=== PATIENT | male | born 1945 | race American Indian/Alaskan Native ===

== ENCOUNTER 2019-01-14 15:52 | Inpatient (IN) | payer OTHER ==
--- NOTE | 2019-01-14 17:05 | Emergency Department Report ---
HPI - General Chief Complaint: Weakness Time Seen by Provider: 01/14/19 16:58 - HPI HPI: 73-year-old -Citizen Of [place] male presents to the emergency department via EMS from the [facility] retirement with complaint of some generalized weakness, fatigue and concern for an concern for symptomatically anemia. The patient had some blood work done at the retirement recently that showed a hemoglobin of 6.6. He has a past history of prostate cancer, hypertension, anemia, osteoarthritis and some more remote history of alcohol abuse. He has no t taken anything or symptoms and for his symptoms prior to arrival. He denies any fever, chest pain, shortness of breath, nausea, vomiting. ED Past Medical Hx - Past Medical History Previous Medical History?: Yes Hx Hypertension: Yes Hx of Cancer: Yes Additional medical history: hx sepsis, Failure to thrive, and ETOH abuse - Surgical History Past Surgical History?: No - Social History Smoking Status: Unknown if ever smoked Substance Use Type: None - Medications Home Medications: Home Medications Medication Instructions Recorded Confirmed Last Taken Type Folic Acid [Folvite] 1 mg PO QDAY 01/14/19 01/14/19 1 Day Ago History ~01/13/19 Megestrol [Megace] 400 mg PO QDAY 01/14/19 01/14/19 1 Day Ago History ~01/13/19 Mirtazapine [Remeron] 15 mg PO QHS 01/14/19 01/14/19 1 Day Ago History ~01/13/19 Pregabalin [Lyrica] 100 mg PO BID 01/14/19 01/14/19 1 Day Ago History ~01/13/19 Rivaroxaban [Xarelto] 15 mg PO QDAY 01/14/19 01/14/19 1 Day Ago History ~01/13/19 hydroCHLOROthiazide [Hctz] 12.5 mg PO QDAY 01/14/19 01/14/19 1 Day Ago History ~01/13/19 ED Review of Systems ROS: Stated complaint: LOW H/H Other details as noted in HPI Comment: All other systems reviewed and negative Constitutional: weakness. denies: chills, fever Eyes: denies: eye pain, vision change ENT: denies: ear pain, throat pain Respiratory: denies: cough, shortness of breath Cardiovascular: denies: chest pain, palpitations Gastrointestinal: denies: abdominal pain, vomiting Genitourinary: denies: dysuria, discharge Musculoskeletal: denies: back pain, arthralgia Skin: denies: rash, lesions Neurological: weakness. denies: headache, numbness Physical Exam - Physical Exam Vital Signs: Vital Signs 01/14/19 01/14/19 01/14/19 16:24 16:25 16:30 Temperature 99.5 F Pulse Rate 95 H 117 H 111 H Respiratory 15 13 Rate Blood Pressure 116/77 120/79 O2 Sat by Pulse 97 100 98 Oximetry Physical Exam: GENERAL: The patient is well-developed well-nourished. HEENT: Normocephalic. Atraumatic. Patient has moist mucous membranes. EYES: Extraocular motions are intact. Pupils are equal and reactive to light bilaterally. NECK: Supple. Trachea is midline. CHEST/LUNGS: Clear to auscultation. There is no respiratory distress noted. HEART/CARDIOVASCULAR: Regular. There is mild tachycardia. There is no obvious murmur. ABDOMEN: Abdomen is soft, nontender. Patient has normal bowel sounds. There is no abdominal distention. SKIN: Skin is warm and dry. Patient has some pressure ulcers to each hip/buttock. NEURO: The patient is awake, alert, and cooperative. The patient has normal speech. MUSCULOSKELETAL: There is no tenderness or deformity. There is no evidence of acute injury. ED Course Vital Signs 01/14/19 01/14/19 01/14/19 16:24 16:25 16:30 Temperature 99.5 F Pulse Rate 95 H 117 H 111 H Respiratory 15 13 Rate Blood Pressure 116/77 120/79 O2 Sat by Pulse 97 100 98 Oximetry ED Medical Decision Making - Lab Data Result diagrams: 01/14/19 17:40 01/14/19 17:40 - EKG Data -: EKG Interpreted by Al EKG shows normal: sinus rhythm (PVCs), axis, intervals, QRS complexes, ST-T waves Rate: tachycardia (103 bpm) - EKG Data When compared to previous EKG there are: previous EKG unavailable Interpretation: other (sinus tachycardia with PVCs) - Radiology Data Radiology results: report reviewed PROCEDURE: CT HEAD/BRAIN WO CON TECHNIQUE: Computerized tomography of the head was performed without contrast material. HISTORY: weakness COMPARISONS: None . FINDINGS: Brain: There is no evidence of intracranial hemorrhage. No parenchymal hemorrhage is seen. No mass lesions or mass effect is identified. No abnormal extra-axial fluid collections or masses are seen. There is some decreased density seen in the periventricular white matter without mass effect. This is fairly symmetric and does not exhibit any mass effect consistent with gliosis probably on the basis of microvascular disease or white matter changes of aging. Ventricles: The ventricles, sulcal pattern and fissures are prominent consistent with atrophy. Bone Windows: No evidence of fracture. Paranasal sinuses: Mild mucosal thickening seen posteriorly in the maxillary sinuses bilaterally. No air-fluid levels are seen. Mastoid air cells: Clear. IMPRESSION: There is mild to moderate atrophy and gliosis. No acute intracranial abnormalities are identified. Mild paranasal sinus disease as described. This document is electronically signed by Britany Jaime MD., January 14 2019 06 :51:34 PM ET Transcribed By: NOÉ Dictated By: BRITANY JAIME MD Electronically Authenticated By: BRITANY JAIME MD Signed Date/Time: 01/14/19 0524 - Medical Decision Making Patient was sent in from his retirement for some generalized weakness and concern for anemia with recent blood work showing a hemoglobin of 6.6. Today, and this emergency department, his hemoglobin was 7. However it still sounds consistent with symptomatic anemia. Patient will have 1 unit of packed red blood cells for transfusion. EKG did not show any signs of ST elevation IL or dysrhythmia. However his first troponin came back elevated without any renal insufficiency. For these reasons, the patient will be admitted to the hospital for further evaluation and treatment and was accepted for admission by the hospitalist service. - Differential Diagnosis symptomatic anemia, dysrhythmia, IL, electrolyte abnormalities Critical Care Time: No Critical care attestation.: If time is entered above; I have spent that time in minutes in the direct care of this critically ill patient, excluding procedure time. ED Disposition Clinical Impression: Symptomatic anemia, Elevated troponin, Generalized weakness Disposition: OP ADMIT IP TO THIS HOSP Is pt being admited?: Yes Condition: Fair Time of Disposition: 20:00
[2019-01-14 18:02] LABS: Hematocrit 22.4 % (35.5-45.6); Mean Corpuscular HGB Conc 32 % (32-34); Mean Corpuscular Volume 90 fl (84-94); Platelet Count 409 K/mm3 (140-440); Red Blood Count 2.48 M/mm3 (3.65-5.03)
[2019-01-14 18:07] LABS: Red Cell Distribution Width 21.5 % (13.2-15.2)
[2019-01-14 18:21] LABS: Alanine Aminotransferase 7 units/L (7-56); Albumin 2.6 g/dL (3.9-5); BUN/Creatinine Ratio 22; Blood Urea Nitrogen 13 mg/dL (9-20); Calcium 8.7 mg/dL (8.4-10.2); Hemolysis Index 3
[2019-01-14 18:32] LABS: Chol/HDL Ratio 3.84 %; HDL Cholesterol 26 mg/dL (40-59); LDL Cholesterol,Direct 68 mg/dL (50-130)
--- NOTE | 2019-01-14 18:53 | Cat Scan Report ---
PROCEDURE: CT HEAD/BRAIN WO CON TECHNIQUE: Computerized tomography of the head was performed without contrast material. HISTORY: weakness COMPARISONS: None . FINDINGS: Brain: There is no evidence of intracranial hemorrhage. No parenchymal hemorrhage is seen. No mass lesions or mass effect is identified. No abnormal extra-axial fluid collections or masses are seen. There is some decreased density seen in the periventricular white matter without mass effect. This i s fairly symmetric and does not exhibit any mass effect consistent with gliosis probably on the basis of microvascular disease or white matter changes of aging. Ventricles: The ventricles, sulcal pattern and fissures are prominent consistent with atrophy. Bone Windows: No evidence of fracture. Paranasal sinuses: Mild mucosal thickening seen posteriorly in the maxillary sinuses bilaterally. No air-fluid levels are seen. Mastoid air cells: Clear. IMPRESSION: There is mild to moderate atrophy and gliosis. No acute intracranial abnormalities are identified. Mild paranasal sinus disease as described. This document is electronically signed by Jagdish Jaime MD., January 14 2019 06:51:34 PM ET
[2019-01-14] MEDS ORDERED: NACL 0.9% 500 ML 500 ML IV ONE (19:12)
[2019-01-14 19:54] LABS: Basophils % (Manual) 0 % (0.0-1.8); Eosinophils % (Manual) 0 % (0.0-4.3); Total Cells Counted 100
[2019-01-14 19:55] LABS: Anisocytosis 1+; Giant Platelets Few; Hypochromasia 1+; Ovalocytes Few; Platelet Estimate Consistent w Auto; Poikilocytosis Few
[2019-01-14 19:56] LABS: Large Platelets Few
[2019-01-14] MEDS ORDERED: NACL 0.9% 500 ML 500 ML ONE (19:57)
[2019-01-14] MEDS ORDERED: TYLENOL PO PRN (22:36)
[2019-01-14] MEDS ORDERED: ZOFRAN IV PRN (22:36)
[2019-01-14] MEDS ORDERED: SODIUM CHLORIDE FLUSH SYRINGE 10 ML IV PRN (22:36)
--- NOTE | 2019-01-14 23:20 | History and Physical Report ---
History of Present Illness Date of examination: 01/14/19 Date of admission: 01/14/19 19:11 Chief complaint: Generalized weakness History of present illness: Pt is a 73-year-old male with PMHX of prostate cancer, hypertension, anemia, osteoarthritis and some more remote history of alcohol abuse who presents to the ER via EMS from a [facility] with complaint of some generalized weakness, fatigue and concern for an concern for symptomatically anemia. Pt has a reported hemoglobin of 6.6 at the [facility], he c/o fatigue, SOB, he denies any fever, chest pain, denies headache, denies nausea or vomiting. Pt's hemoglobin was 7.0 in the ER, blood transfusion was started, he was admitted for further evaluation and treatment. Past History Past Medical History: cancer, hypertension, other (anemia, arthritis) Social history: no significant social history, other (lives in a [facility]) Family history: no significant family history Medications and Allergies Allergies Allergy/AdvReac Type Severity Reaction Status Date / Time No Known Allergies Allergy Unverified 09/25/15 10:40 Home Medications Medication Instructions Recorded Confirmed Last Taken Type Folic Acid [Folvite] 1 mg PO QDAY 01/14/19 01/14/19 1 Day Ago History ~01/13/19 Megestrol [Megace] 400 mg PO QDAY 01/14/19 01/14/19 1 Day Ago History ~01/13/19 Mirtazapine [Remeron] 15 mg PO QHS 01/14/19 01/14/19 1 Day Ago History ~01/13/19 Pregabalin [Lyrica] 100 mg PO BID 01/14/19 01/14/19 1 Day Ago History ~01/13/19 Rivaroxaban [Xarelto] 15 mg PO QDAY 01/14/19 01/14/19 1 Day Ago History ~01/13/19 hydroCHLOROthiazide [Hctz] 12.5 mg PO QDAY 01/14/19 01/14/19 1 Day Ago History ~01/13/19 Active Meds: Active Medications Acetaminophen (Tylenol) 650 mg PO Q4H PRN PRN Reason: Pain MILD(1-3)/Fever >100.5/ALBA Ondansetron HCl (Zofran) 4 mg IV Q8H PRN PRN Reason: Nausea And Vomiting Sodium Chloride (Sodium Chloride Flush Syringe 10 Ml) 10 ml IV BID SKIP Sodium Chloride (Sodium Chloride Flush Syringe 10 Ml) 10 ml IV PRN PRN PRN Reason: LINE FLUSH Review of Systems Respiratory: shortness of breath Exam - Constitutional Vitals: Temp Pulse Resp BP Pulse Ox 99.0 F 105 H 20 114/72 97 01/14/19 20:01 01/14/19 23:01 01/14/19 21:34 01/14/19 20:30 01/14/19 20:30 General appearance: Present: no acute distress - EENT Eyes: Present: PERRL ENT: hearing intact - Neck Neck: Present: supple - Respiratory Respiratory effort: normal Respiratory: bilateral: CTA - Cardiovascular Rhythm: regular - Extremities Extremities: no ischemia Peripheral Pulses: within normal limits - Abdominal Male genitourinary: Present: deferred - Rectal Rectal Exam: deferred - Integumentary Integumentary: Present: clear - Musculoskeletal Musculoskeletal: strength equal bilaterally Results - Labs CBC & Chem 7: 01/14/19 23:54 01/14/19 23:54 Labs: Laboratory Last Values WBC 10.7 K/mm3 (4.5-11.0) 01/14/19 17:40 RBC 2.48 M/mm3 (3.65-5.03) L 01/14/19 17:40 Hgb 7.0 gm/dl (11.8-15.2) L 01/14/19 17:40 Hct 22.4 % (35.5-45.6) L 01/14/19 17:40 MCV 90 fl (84-94) 01/14/19 17:40 MCH 28 pg (28-32) 01/14/19 17:40 MCHC 32 % (32-34) 01/14/19 17:40 RDW 21.5 % (13.2-15.2) H 01/14/19 17:40 Plt Count 409 K/mm3 (140-440) 01/14/19 17:40 Add Manual Diff Complete 01/14/19 17:40 Total Counted 100 01/14/19 17:40 Seg Neuts % (Manual) 77.0 % (40.0-70.0) H 01/14/19 17:40 Band Neutrophils % 0 % 01/14/19 17:40 Lymphocytes % (Manual) 16.0 % (13.4-35.0) 01/14/19 17:40 Reactive Lymphs % (Man) 0 % 01/14/19 17:40 Monocytes % (Manual) 5.0 % (0.0-7.3) 01/14/19 17:40 Eosinophils % (Manual) 0 % (0.0-4.3) 01/14/19 17:40 Basophils % (Manual) 0 % (0.0-1.8) 01/14/19 17:40 Metamyelocytes % 2.0 % 01/14/19 17:40 Myelocytes % 0 % 01/14/19 17:40 Promyelocytes % 0 % 01/14/19 17:40 Blast Cells % 0 % 01/14/19 17:40 Nucleated RBC % Not Reportable 01/14/19 17:40 Seg Neutrophils # Man 8.2 K/mm3 (1.8-7.7) H 01/14/19 17:40 Band Neutrophils # 0.0 K/mm3 01/14/19 17:40 Lymphocytes # (Manual) 1.7 K/mm3 (1.2-5.4) 01/14/19 17:40 Abs React Lymphs (Man) 0.0 K/mm3 01/14/19 17:40 Monocytes # (Manual) 0.5 K/mm3 (0.0-0.8) 01/14/19 17:40 Eosinophils # (Manual) 0.0 K/mm3 (0.0-0.4) 01/14/19 17:40 Basophils # (Manual) 0.0 K/mm3 (0.0-0.1) 01/14/19 17:40 Metamyelocytes # 0.2 K/mm3 01/14/19 17:40 Myelocytes # 0.0 K/mm3 01/14/19 17:40 Promyelocytes # 0.0 K/mm3 01/14/19 17:40 Blast Cells # 0.0 K/mm3 01/14/19 17:40 WBC Morphology Not Reportable 01/14/19 17:40 Hypersegmented Neuts Not Reportable 01/14/19 17:40 Hyposegmented Neuts Not Reportable 01/14/19 17:40 Hypogranular Neuts Not Reportable 01/14/19 17:40 Smudge Cells Not Reportable 01/14/19 17:40 Toxic Granulation Not Reportable 01/14/19 17:40 Toxic Vacuolation Not Reportable 01/14/19 17:40 Dohle Bodies Not Reportable 01/14/19 17:40 Pelger-Huet Anomaly Not Reportable 01/14/19 17:40 Zachary Rods Not Reportable 01/14/19 17:40 Platelet Estimate Consistent w auto 01/14/19 17:40 Clumped Platelets Not Reportable 01/14/19 17:40 Plt Clumps, EDTA Not Reportable 01/14/19 17:40 Large Platelets Few 01/14/19 17:40 Giant Platelets Few 01/14/19 17:40 Platelet Satelliting Not Reportable 01/14/19 17:40 Plt Morphology Comment Not Reportable 01/14/19 17:40 RBC Morphology Not Reportable 01/14/19 17:40 Dimorphic RBCs Not Reportable 01/14/19 17:40 Polychromasia Not Reportable 01/14/19 17:40 Hypochromasia 1+ 01/14/19 17:40 Poikilocytosis Few 01/14/19 17:40 Anisocytosis 1+ 01/14/19 17:40 Microcytosis Not Reportable 01/14/19 17:40 Macrocytosis Not Reportable 01/14/19 17:40 Spherocytes Not Reportable 01/14/19 17:40 Pappenheimer Bodies Not Reportable 01/14/19 17:40 Sickle Cells Not Reportable 01/14/19 17:40 Target Cells Not Reportable 01/14/19 17:40 Tear Drop Cells Not Reportable 01/14/19 17:40 Ovalocytes Few 01/14/19 17:40 Helmet Cells Not Reportable 01/14/19 17:40 Pollock-Sonoita Bodies Not Reportable 01/14/19 17:40 Archer Rings Not Reportable 01/14/19 17:40 Jl Cells Not Reportable 01/14/19 17:40 Bite Cells Not Reportable 01/14/19 17:40 Crenated Cell Not Reportable 01/14/19 17:40 Elliptocytes Not Reportable 01/14/19 17:40 Acanthocytes (Spur) Not Reportable 01/14/19 17:40 Rouleaux Not Reportable 01/14/19 17:40 Hemoglobin C Crystals Not Reportable 01/14/19 17:40 Schistocytes Not Reportable 01/14/19 17:40 Malaria parasites Not Reportable 01/14/19 17:40 Zach Bodies Not Reportable 01/14/19 17:40 Hem Pathologist Commnt No 01/14/19 17:40 Sodium 134 mmol/L (137-145) L 01/14/19 17:40 Potassium 4.0 mmol/L (3.6-5.0) 01/14/19 17:40 Chloride 99.2 mmol/L (98-107) 01/14/19 17:40 Carbon Dioxide 24 mmol/L (22-30) 01/14/19 17:40 Anion Gap 15 mmol/L 01/14/19 17:40 BUN 13 mg/dL (9-20) 01/14/19 17:40 Creatinine 0.6 mg/dL (0.8-1.5) L 01/14/19 17:40 Estimated GFR > 60 ml/min 01/14/19 17:40 BUN/Creatinine Ratio 22 % 01/14/19 17:40 Glucose 107 mg/dL (75-100) H 01/14/19 17:40 Calcium 8.7 mg/dL (8.4-10.2) 01/14/19 17:40 Total Bilirubin 0.30 mg/dL (0.1-1.2) 01/14/19 17:40 AST 18 units/L (5-40) 01/14/19 17:40 ALT 7 units/L (7-56) 01/14/19 17:40 Alkaline Phosphatase 76 units/L (35-129) 01/14/19 17:40 Troponin T 0.033 ng/mL (0.00-0.029) H 01/14/19 17:40 Total Protein 7.9 g/dL (6.3-8.2) 01/14/19 17:40 Albumin 2.6 g/dL (3.9-5) L 01/14/19 17:40 Albumin/Globulin Ratio 0.5 % 01/14/19 17:40 Triglycerides 90 mg/dL (2-149) 01/14/19 17:40 Cholesterol 100 mg/dL (50-199) 01/14/19 17:40 LDL Cholesterol Direct 68 mg/dL (50-130) 01/14/19 17:40 HDL Cholesterol 26 mg/dL (40-59) L 01/14/19 17:40 Cholesterol/HDL Ratio 3.84 % 01/14/19 17:40 TSH 2.250 mlU/mL (0.270-4.200) 01/14/19 17:40 Blood Type O POSITIVE 01/14/19 17:40 Antibody Screen Negative 01/14/19 17:40 Crossmatch See Detail 01/14/19 17:40 Assessment and Plan Assessment and plan: 1. Symtomatic anemia 2. H/o prostate cancer 3. Hypertension 4. Chronic anemia 5. Osteoarthritis an 6. H/o alcohol abuse 7. Hyponatremia 8. Hypoalbuminemia 9. Elevated troponin( due to anemia, chronic) Plan: Admit to [facility]tele Continue blood transfusion Repeat H&H in am DC to NH in am if H&H stable Advance Directives: Yes Contraindication Mechanical VTE Prophylaxis: Contraindicated (low hemoglbin) Plan of care discussed with patient/family: Yes
[2019-01-15] MEDS: SODIUM CHLORIDE FLUSH SYRINGE 10 ML IV SCH ×2 (00:20→10:48)
[2019-01-15 00:30] LABS: BUN/Creatinine Ratio 17; Blood Urea Nitrogen 12 mg/dL (9-20); Calcium 8.6 mg/dL (8.4-10.2); Hemolysis Index 8
[2019-01-15 00:33] LABS: Hematocrit 27.4 % (35.5-45.6); Hemoglobin 9.2 gm/dl (11.8-15.2); Mean Corpuscular HGB Conc 34 % (32-34); Mean Corpuscular Volume 89 fl (84-94); Platelet Count 374 K/mm3 (140-440); Red Blood Count 3.06 M/mm3 (3.65-5.03)
[2019-01-15 00:36] LABS: Red Cell Distribution Width 20.2 % (13.2-15.2)
[2019-01-15 01:07] LABS: Bilirubin,Urine NEG (Negative); Blood,Urine NEG (Negative); Color,Urine Yellow (Yellow); Mucus,Urine FEW /HPF; Protein,Urine <15 mg/dL mg/dL (Negative); Urobilinogen,Urine < 2.0 mg/dL (<2.0)
[2019-01-15 03:27] LABS: Anisocytosis 1+; Band Neutrophils # (Manual) 0.2 K/mm3; Basophils % (Manual) 0 % (0.0-1.8); Total Cells Counted 100
[2019-01-15 03:28] LABS: Hypochromasia Few; Ovalocytes Few
--- NOTE | 2019-01-15 10:45 | Consultation ---
History of Present Illness Consult date: 01/15/19 Consult reason: chest pain History of present illness: Patient is a 73 year old male who was sent from the group home with severe anemia with recent blood work showing a hemoglobin of 6.6. In the emergency department hemoglobin was 7. Patient received 1 unit of packed red blood cells and has current hemoglobin of 9.2. A cardiac consultation was requested for "chest pain". Patient denies chest pain. Patient denies unusual shortness of breath or palpitations. There were no report of syncope. ECG is sinus rhythm, no acute ischemic changes. Past History Social history: other (lives in a long term) Family history: no significant family history Medications and Allergies Allergies Allergy/AdvReac Type Severity Reaction Status Date / Time No Known Allergies Allergy Unverified 09/25/15 10:40 Home Medications Medication Instructions Recorded Confirmed Last Taken Type Folic Acid [Folvite] 1 mg PO QDAY 01/14/19 01/14/19 1 Day Ago History ~01/13/19 Megestrol [Megace] 400 mg PO QDAY 01/14/19 01/14/19 1 Day Ago History ~01/13/19 Mirtazapine [Remeron] 15 mg PO QHS 01/14/19 01/14/19 1 Day Ago History ~01/13/19 Pregabalin [Lyrica] 100 mg PO BID 01/14/19 01/14/19 1 Day Ago History ~01/13/19 Rivaroxaban [Xarelto] 15 mg PO QDAY 01/14/19 01/14/19 1 Day Ago History ~01/13/19 hydroCHLOROthiazide [Hctz] 12.5 mg PO QDAY 01/14/19 01/14/19 1 Day Ago History ~01/13/19 Active Meds: Active Medications Acetaminophen (Tylenol) 650 mg PO Q4H PRN PRN Reason: Pain MILD(1-3)/Fever >100.5/ALBA Ondansetron HCl (Zofran) 4 mg IV Q8H PRN PRN Reason: Nausea And Vomiting Sodium Chloride (Sodium Chloride Flush Syringe 10 Ml) 10 ml IV BID SKIP Last Admin: 01/15/19 00:20 Dose: Not Given Documented by: Sodium Chloride (Sodium Chloride Flush Syringe 10 Ml) 10 ml IV PRN PRN PRN Reason: LINE FLUSH Physical Examination Vital Signs Pulse Resp Pulse Ox 95 H 15 97 01/14/19 16:24 01/14/19 16:24 01/14/19 16:24 General appearance: no acute distress HEENT: Positive: PERRL Neck: Positive: trachea midline Cardiac: Positive: Reg Rate and Rhythm Lungs: Positive: Decreased Breath Sounds Neuro: Positive: Weakness Extremities: Absent: edema Results 01/14/19 23:54 01/14/19 23:54 Cardiac Enzymes 01/14/19 Range/Units 17:40 AST 18 (5-40) units/L Lipids 01/14/19 Range/Units 17:40 Triglycerides 90 (2-149) mg/dL Cholesterol 100 (50-199) mg/dL HDL Cholesterol 26 L (40-59) mg/dL Cholesterol/HDL Ratio 3.84 % CBC 01/14/19 01/14/19 Range/Units 17:40 23:54 WBC 10.7 9.2 (4.5-11.0) K/mm3 RBC 2.48 L 3.06 L (3.65-5.03) M/mm3 Hgb 7.0 L 9.2 L (11.8-15.2) gm/dl Hct 22.4 L 27.4 L (35.5-45.6) % Plt Count 409 374 (140-440) K/mm3 Lymph # Guyline Operator Mercer # Guyline Operator Eos # Guyline Operator Baso # Guyline Operator Comprehensive Metabolic Panel 01/14/19 01/14/19 Range/Units 17:40 23:54 Sodium 134 L 137 (137-145) mmol/L Potassium 4.0 4.0 (3.6-5.0) mmol/L Chloride 99.2 102.5 (98-107) mmol/L Carbon Dioxide 24 21 L (22-30) mmol/L BUN 13 12 (9-20) mg/dL Creatinine 0.6 L 0.7 L (0.8-1.5) mg/dL Glucose 107 H 113 H (75-100) mg/dL Calcium 8.7 8.6 (8.4-10.2) mg/dL AST 18 (5-40) units/L ALT 7 (7-56) units/L Alkaline Phosphatase 76 (35-129) units/L Total Protein 7.9 (6.3-8.2) g/dL Albumin 2.6 L (3.9-5) g/dL Assessment and Plan Severe anemia s/p transfusion of PRBCs Chest pain, atypical pt denies chest pain ECG benign Lower extremity wounds
--- NOTE | 2019-01-15 14:31 | Discharge Summary ---
Providers - Providers Date of Admission: 01/14/19 19:11 Date of discharge: 01/15/19 Attending physician: PINA LANDIS 01/14/19 Consult to Cardiac Rehabilitation [CONS] Routine Reason For Exam: Phase I 01/15/19 08:00 Consult to Wound/ET Nurse [CONS] Urgent Reason For Exam: wound eval jason. back of upper legs Primary care physician: [facility] QUAN SHIEL[facility] MD Hospitalization Condition: Stable Hospital course: 1. Symtomatic anemia, acute on chronic anemia of AOCD 2. H/o prostate cancer 3. Hypertension 4. Chronic anemia 5. Osteoarthritis an 6. H/o alcohol abuse 7. Hyponatremia 8. Hypoalbuminemia, severe malnutrition, poa 9. Elevated troponin( due to anemia, chronic)==>Cardiology evaluated Disposition: DC/[place]-03 [facility] Time spent for discharge: 36 minutes Core Measure Documentation - Palliative Care Palliative Care/ Comfort Measures: Not Applicable - Core Measures Any of the following diagnoses?: none - VTE Discharge Requirements Deep Vein Thrombosis/Pulmonary Embolism Present on Admission: No Has pt received <5 days of overlap therapy or INR<2.0: No Anticoagulant overlap therapy prescribed at discharge: No Contraindication No Overlap Therapy order at DC: Not Indicated Exam - Physical Exam Narrative exam: Gen: WDWN, NAD, Awake, Alert, Orientated HEENT: NCAT, EOMI, PERRL, OP Clear Neck: supple, no adenopathy, no thyromegaly, no JVD CVS/Heart: RRR, normal S1S2, pulses present bilaterally Chest/Lungs: CTA B, Symmetrical chest expansion, good air entry bilaterally GI/Abdomen: soft, NTND, good bowel sounds, no guarding or rebound /Bladder: no suprapubic tenderness, no CVA or paraspinal tenderness Extermity/Skin: no c/c/e, no obvious rash MSK: FROM x 4 Neuro: CN 2-12 grossly intact, no new focal deficits Psych: calm - Constitutional Vitals: Temp Pulse Resp BP Pulse Ox 97.9 F 93 H 18 111/72 97 01/15/19 08:37 01/15/19 08:37 01/15/19 08:37 01/15/19 08:37 01/15/19 08:37 Plan Activity: other Diet: low salt Follow up with: BUFFY HAMMOND MD [Primary Care Provider] - 3-5 Days JV NÚÑEZ MD [Staff Physician] - 7 Days
[2019-01-15 16:00] VITALS: BP 112/66
== END 2019-01-15 18:30 | DRG 811 ==
LOC: ED 15:52 → 4A 19:11
PROVIDERS: ADMIT Internal Medicine; ATTEND Internal Medicine
PROC: 30233N1 Transfusion of Nonautologous Red Blood Cells into Peripheral Vein, Percutaneous Approach (ICD-10-PCS; principal; 2019-01-14)
DX: D64.9 Anemia, unspecified (principal); E43 Unspecified severe protein-calorie malnutrition; E87.1 Hypo-osmolality and hyponatremia; D63.8 Anemia in other chronic diseases classified elsewhere; R53.1 Weakness; Z85.46 Personal history of malignant neoplasm of prostate; I10 Essential (primary) hypertension; M19.90 Unspecified osteoarthritis, unspecified site; S81.809A Unspecified open wound, unspecified lower leg, initial encounter; Z68.23 Body mass index [BMI] 23.0-23.9, adult
CPT/HCPCS: 36415; 70450; 80048; 80053; 80061; 81001; 84443; 84484; 85007; 85025; 86850; 86900; 86901; 86920; 93005; 93010; 96374; 99285; G0378; J7040; P9016